=== PATIENT | male | born 1975 | race Caucasian/White ===

== ENCOUNTER 2016-11-04 01:09 | Emergency (ER) | payer OTHER, BC ==
[~2016-11-04] VITALS: Ht 177.8 cm; Wt 82.0 kg
[~2016-11-04 01:09] MED LIST: FLEXERIL OR; NAPROXEN375 MG OR; PREVACID30 M3 PO; ULTRAM50 M1 PO
[2016-11-04] MEDS ORDERED: KEFLEX500 MG PO (02:03)
[2016-11-04 02:04] VITALS: BP 110/66
== END 2016-11-04 02:04 | disposition home or self-care (01) | DRG 605 ==
LOC: ED 01:09
PROC: 0HQGXZZ Repair Left Hand Skin, External Approach (ICD-10-PCS; principal; 2016-11-04)
DX: S61.012A Laceration without foreign body of left thumb without damage to nail, initial encounter (principal); S61.012D Laceration without foreign body of left thumb without damage to nail, subsequent encounter; W26.0XXA Contact with knife, initial encounter; Y93.89 Activity, other specified; Y92.009 Unspecified place in unspecified non-institutional (private) residence as the place of occurrence of the external cause

== ENCOUNTER 2016-11-04 16:56 | Emergency (ER) | payer OTHER, BC ==
[~2016-11-04] VITALS: Ht 177.8 cm; Wt 68.0 kg
[~2016-11-04 16:56] MED LIST changes: +KEFLEX500 MG PO
[2016-11-04 17:25] VITALS: BP 129/77
== END 2016-11-04 17:30 | disposition home or self-care (01) | DRG 950 ==
LOC: ED 16:56
DX: S61.012D Laceration without foreign body of left thumb without damage to nail, subsequent encounter (principal)

== ENCOUNTER 2017-03-06 10:11 | Emergency (ER) | payer BC ==
[~2017-03-06] VITALS: Ht 177.8 cm; Wt 85.0 kg
[2017-03-06] MEDS ORDERED: MOTRIN800 MG PO (11:21)
[2017-03-06 11:44] VITALS: BP 103/68
== END 2017-03-06 11:44 | disposition home or self-care (01) | DRG 563 ==
LOC: ED 10:11
DX: M23.92 Unspecified internal derangement of left knee (principal); M25.462 Effusion, left knee; M25.562 Pain in left knee